=== PATIENT | male | born 1935 | race African-American/Black ===

== ENCOUNTER → 2018-02-11 08:19 | Outpatient (CLI) | payer MEDICARE, SELFPAY ==
[2018-02-11 10:16] LABS: Albumin Level 3.6 gm/dL (3.4-5.0); Anion Gap 16.8 mEq/L (5-15); Blood Urea Nitrogen 49 mg/dL (7-18); Calcium 8.7 mg/dL (8.5-10.1); Carbon Dioxide 22 mmol/L (21.0-32.0); Chloride 108 mmol/L (98-107); Creatinine,Serum 2.91 mg/dL (0.70-1.30); Estimated Glomerular Filt Rate 21 ml/min (>60); GFR (African American) 25 ML/MIN (>60); Glucose 115 mg/dL (74-106); Phosphorous 3.4 mg/dL (2.4-4.9); Potassium 4.8 mmoL/L (3.5-5.1); Sodium 142 mmol/L (136-145)
[2018-02-12 20:13] LABS: Vitamin D 25 Hydroxy 17.2 ng/mL (30.0-100.0)
== END ==
PROVIDERS: Visit Provider Internal Medicine Nephrology
DX: N18.4 Chronic kidney disease, stage 4 (severe) (principal)
CPT/HCPCS: 36415; 80069; 82652

== ENCOUNTER → 2018-02-14 13:28 | Outpatient (POV) | payer MEDICARE, SELFPAY | PROVIDERS: PCP Internal Medicine; Visit Provider Internal Medicine Nephrology | DX: Z00.00 Encounter for general adult medical examination without abnormal findings (principal) ==

== ENCOUNTER → 2018-05-24 13:02 | Outpatient (CLI) | payer MEDICARE, SELFPAY ==
[2018-05-24 14:43] LABS: Prostate Specific Ag Screen < 0.1 ng/mL (0.0-4.0)
== END ==
PROVIDERS: Visit Provider Urology
DX: Z12.5 Encounter for screening for malignant neoplasm of prostate (principal); C61 Malignant neoplasm of prostate
CPT/HCPCS: 36415; G0103

== ENCOUNTER → 2018-06-02 10:16 | Outpatient (CLI) | payer MEDICARE, SELFPAY ==
--- NOTE | 2018-06-02 10:22 | CA_ITS ---
PROCEDURE: 2-D M-mode and color Doppler study INDICATIONS FOR THE TEST: Chest pain COPD Heart Murmur Tobacco Smoking Palpitations Fatigue Syncope Edema HypertensionxDiabetes Mellitus Rheumatic Fever SOBxDOE Obesity Hyperlipidemia Family History HD Additional History CM, pacemaker PATIENT INFORMATION HEIGHT: 74'' WEIGHT: 205 GENDER: Male B/P: 118/67 2-D/M-MODE INTERPRETATION: 2-D MEASUREMENTS OBSERVED VALUES IN CMS Right Ventricular Dimension (RVDd) 2.8 Interventricular Septum (Thickness)(IVsd) 1.3 Left Ventricular Internal Dimensions(LVIDd) 5.7 Left Ventricular Posterior Wall (Thickness)(LVPWd) 1.3 Aortic Root 3.7 Aortic Cusp Separation 1.8 Left Atrial Dimensions (LAD) 4.7 2D 1. Left atrium is mildly enlarged, left ventricle is mildly dilated, there is mild concentric left ventricular hypertrophy, visually estimated ejection fraction approximately 20-25%, left ventricle is globally hypokinetic. 2. The right atrium and right ventricle are relatively normal size and function. There is catheter noted in the right atrium and right ventricle which is likely an ICD lead. 3. The aortic valve is minimally thickened and calcified, leaflet continue to display mobility. 4. The mitral and tricuspid valve leaflets are minimally thickened. 5. The pulmonic valve is poorly visualized. 6. No significant pericardial effusion noted. DOPPLER INTERROGATION: Doppler interrogation of the aortic, mitral and tricuspid valvular presence of moderate mitral and mild tricuspid regurgitation, tricuspid and jet velocity is insufficient for calculation of the right ventricular systolic pressure, diastolic parameters are inconclusive. CONCLUSION: 1. Mildly enlarged left atrium, mildly dilated left ventricle, mild concentric left ventricular hypertrophy, visually estimated ejection fraction of 20-25%, left ventricle is globally hypokinetic. Diastolic parameters are inconclusive. 2. Moderate mitral and mild tricuspid regurgitation 3. No significant pericardial effusion noted.
== END ==
PROVIDERS: PCP Family Medicine; Visit Provider Internal Medicine
DX: I50.22 Chronic systolic (congestive) heart failure (principal)
CPT/HCPCS: 93306

== ENCOUNTER → 2018-07-08 07:26 | Outpatient (CLI) | payer MEDICARE, SELFPAY ==
[2018-07-08 10:06] LABS: Anion Gap 16.5 mEq/L (5-15); Blood Urea Nitrogen 44 mg/dL (7-18); Calcium 8.4 mg/dL (8.5-10.1); Carbon Dioxide 23 mmol/L (21.0-32.0); Chloride 111 mmol/L (98-107); Creatinine,Serum 2.73 mg/dL (0.70-1.30); Estimated Glomerular Filt Rate 23 ml/min (>60); GFR (African American) 27 ML/MIN (>60); Glucose 114 mg/dL (74-106); Potassium 4.5 mmoL/L (3.5-5.1); Sodium 146 mmol/L (136-145)
== END ==
PROVIDERS: Urology; PCP Family Medicine; Visit Provider Internal Medicine
DX: I50.22 Chronic systolic (congestive) heart failure; I42.9 Cardiomyopathy, unspecified
CPT/HCPCS: 36415; 80048

== ENCOUNTER → 2018-08-17 09:00 | Outpatient (CLI) | payer MEDICARE, SELFPAY ==
[2018-08-17 09:21] LABS: Basophils % 0.8 % (0.1-2.0); Eosinophils # 0.1 K/mm3 (0.0-0.4); Eosinophils % 3.4 % (0.1-12.0); Hematocrit 28.4 % (42.0-52.0); Hemoglobin 9.3 g/dL (14.1-18.0); Lymphocytes # 0.3 K/mm3 (0.7-4.5); Lymphocytes % 9.8 K/mm3 (10-50); Mean Corpuscular HGB Conc 32.6 g/dL (31.8-35.4); Mean Corpuscular Volume 98.2 fl (80-94); Mean Platelet Volume 9.8 fl (7.4-10.4); Monocytes # 0.2 K/mm3 (0.1-1.0); Monocytes % 6.1 % (1.7-9.3); Neutrophils # 2.7 K/mm3 (1.8-7.8); Platelet Count 137 K/mm3 (142-424); Red Blood Count 2.89 M/mm3 (4.60-6.20); White Blood Count 3.4 K/mm3 (4.8-10.8)
[2018-08-17 09:32] LABS: Creatinine,Urine Random 124 mg/dL (20-320); Total Protein,Urine Random 29.1 mg/dL (0.0-11.9)
[2018-08-17 13:25] LABS: Albumin Level 3.3 gm/dL (3.4-5.0); Anion Gap 14.3 mEq/L (5-15); Blood Urea Nitrogen 43 mg/dL (7-18); Calcium 8.4 mg/dL (8.5-10.1); Carbon Dioxide 24 mmol/L (21.0-32.0); Chloride 110 mmol/L (98-107); Creatinine,Serum 2.79 mg/dL (0.70-1.30); Estimated Glomerular Filt Rate 22 ml/min (>60); GFR (African American) 27 ML/MIN (>60); Glucose 145 mg/dL (74-106); Phosphorous 3.5 mg/dL (2.4-4.9); Potassium 4.3 mmoL/L (3.5-5.1); Sodium 144 mmol/L (136-145); Uric Acid 8.4 mg/dL (2.6-7.2)
[2018-08-18 15:20] LABS: Parathyroid Hormone Intact 187 pg/mL (15-65)
[2018-08-18 15:21] LABS: Calcium, Ionized 4.8 mg/dL (4.5-5.6); Vitamin D 25 Hydroxy 22.7 ng/mL (30.0-100.0)
== END ==
PROVIDERS: Visit Provider Internal Medicine Nephrology
DX: N18.4 Chronic kidney disease, stage 4 (severe) (principal)
CPT/HCPCS: 36415; 80069; 82330; 82570; 82652; 83970; 84155; 84550; 85025

== ENCOUNTER → 2018-08-22 12:33 | Outpatient (POV) | payer MEDICARE, SELFPAY ==
[2018-08-22 15:07] LABS: Basophils % 0.6 % (0.1-2.0); Eosinophils # 0.1 K/mm3 (0.0-0.4); Hematocrit 31.1 % (42.0-52.0); Hemoglobin 9.4 g/dL (14.1-18.0); Lymphocytes # 0.5 K/mm3 (0.7-4.5); Mean Corpuscular HGB Conc 30.1 g/dL (31.8-35.4); Mean Corpuscular Volume 99.8 fl (80-94); Mean Platelet Volume 8.1 fl (7.4-10.4); Monocytes # 0.3 K/mm3 (0.1-1.0); Monocytes % 6.9 % (1.7-9.3); Neutrophils # 3.1 K/mm3 (1.8-7.8); Neutrophils % 77.5 % (37.0-80.0); Platelet Count 172 K/mm3 (142-424); Red Blood Count 3.12 M/mm3 (4.60-6.20); Red Cell Distribution Width 14.1 % (11.5-17.5)
== END ==
PROVIDERS: Visit Provider Internal Medicine Nephrology
DX: D63.8 Anemia in other chronic diseases classified elsewhere (principal)
CPT/HCPCS: 36415; 85025

== ENCOUNTER → 2018-11-02 09:24 | Outpatient (CLI) | payer MEDICARE, SELFPAY ==
[2018-11-02 10:34] LABS: Anion Gap 16.4 mEq/L (5-15); Blood Urea Nitrogen 38 mg/dL (7-18); Calcium 8.5 mg/dL (8.5-10.1); Carbon Dioxide 24 mmol/L (21.0-32.0); Chloride 106 mmol/L (98-107); Creatinine,Serum 2.45 mg/dL (0.70-1.30); Estimated Glomerular Filt Rate 25 ml/min (>60); GFR (African American) 31 ML/MIN (>60); Glucose 127 mg/dL (74-106); Potassium 4.4 mmoL/L (3.5-5.1); Sodium 142 mmol/L (136-145)
== END ==
PROVIDERS: Visit Provider Internal Medicine Cardiovascular Disease
DX: I42.0 Dilated cardiomyopathy (principal); I50.22 Chronic systolic (congestive) heart failure; Z95.810 Presence of automatic (implantable) cardiac defibrillator
CPT/HCPCS: 36415; 80048

== ENCOUNTER → 2018-11-21 09:38 | Outpatient (CLI) | payer MEDICARE, SELFPAY ==
[2018-11-21 11:27] LABS: Anion Gap 14.2 mEq/L (5-15); Blood Urea Nitrogen 43 mg/dL (7-18); Calcium 9.1 mg/dL (8.5-10.1); Carbon Dioxide 29 mmol/L (21.0-32.0); Chloride 103 mmol/L (98-107); Estimated Glomerular Filt Rate 22 ml/min (>60); GFR (African American) 26 ML/MIN (>60); Glucose 131 mg/dL (74-106); Potassium 4.2 mmoL/L (3.5-5.1); Sodium 142 mmol/L (136-145)
== END ==
PROVIDERS: Visit Provider Urology
DX: I42.9 Cardiomyopathy, unspecified (principal); I50.22 Chronic systolic (congestive) heart failure; Z95.810 Presence of automatic (implantable) cardiac defibrillator
CPT/HCPCS: 36415; 80048

== ENCOUNTER → 2018-11-29 11:10 | Outpatient (CLI) | payer MEDICARE, SELFPAY ==
[2018-11-29 12:29] LABS: Anion Gap 12.2 mEq/L (5-15); Blood Urea Nitrogen 47 mg/dL (7-18); Calcium 9.3 mg/dL (8.5-10.1); Carbon Dioxide 29 mmol/L (21.0-32.0); Chloride 106 mmol/L (98-107); Creatinine,Serum 2.68 mg/dL (0.70-1.30); Estimated Glomerular Filt Rate 23 ml/min (>60); GFR (African American) 28 ML/MIN (>60); Glucose 121 mg/dL (74-106); Potassium 4.2 mmoL/L (3.5-5.1); Sodium 143 mmol/L (136-145)
== END ==
PROVIDERS: Visit Provider Internal Medicine Cardiovascular Disease
DX: I10 Essential (primary) hypertension (principal); I50.22 Chronic systolic (congestive) heart failure
CPT/HCPCS: 36415; 80048

== ENCOUNTER → 2019-01-06 06:54 | Outpatient (CLI) | payer MEDICARE, SELFPAY ==
--- NOTE | 2019-01-06 07:02 | NM_ITS ---
CARDIOLITE SPECT MYOCARDIAL PERFUSION LEXISCAN, REST AND STRESS: History: Hypertension, congestive heart failure history of cardiomyopathy, Procedure: Patient received 0.4, intravenous Lexiscan, resting heart rate was 73 bpm resting blood pressure 130/83, with Lexiscan maximum heart rate achieved was 76 bpm which is less than 85% of the maximum heart rate and a blood pressure was 124/81. With Lexiscan patient denied any complained of chest pain or shortness of breath. Electrocardiogram: Resting echocardiogram showed sinus rhythm intraventricular conduction delay inferior lateral ST-T wave changes consider subendocardial ischemia, with Lexiscan there is less than 1.[address] segment depression noted from the baseline EKG. Occasional premature ventricular complexes were also present. The EKG portion of the Lexiscan Myoview is nondiagnostic. Cardiac stress and resting SPECT images: Cardiac stress and rest SPECT images were obtained using technetium 99 Myoview 32.0 mCi stress and 10.1 mCi at rest. Gated SPECT further analysis of segmental wall motion and calculation of the ejection fraction also done. Cardiac stress and rest SPECT images show markedly dilated left ventricle, with fixed defect in the inferior wall likely secondary to soft tissue attenuation, no reversible ischemia seen. Computer derived ejection fraction is 12% with left ventricular global hypokinesis. Right ventricle is moderately enlarged with mild reduced contractility. Conclusion: 1. The EKG portion of the Lexiscan Myoview is nondiagnostic. 2. No scintigraphic evidence of reversible ischemia seen, left ventricle is markedly dilated with stress and rest, computer derived ejection fraction is 12% with left ventricular global hypokinesis, right ventricle is moderately enlarged with mild reduced contractility. 3. Abnormal Lexiscan Myoview study.
--- NOTE | 2019-01-06 10:17 | HMH.ITSHM ---
Current Home Medications as stated by this patient Henrik Sanchez or kiosk sales representative. []CARVEDILOL FUROSEMIDE
== END ==
PROVIDERS: PCP Family Medicine; Visit Provider Internal Medicine Cardiovascular Disease
DX: I49.01 Ventricular fibrillation; I42.0 Dilated cardiomyopathy; I50.22 Chronic systolic (congestive) heart failure; R94.31 Abnormal electrocardiogram [ECG] [EKG]; Z45.02 Encounter for adjustment and management of automatic implantable cardiac defibrillator; Z95.810 Presence of automatic (implantable) cardiac defibrillator
CPT/HCPCS: 78452; 93017; A9502; J2785

== ENCOUNTER → 2019-04-21 09:30 | Outpatient (CLI) | payer MEDICARE, SELFPAY ==
[2019-04-21 09:51] LABS: Basophils % 0.6 % (0.1-2.0); Eosinophils # 0.2 K/mm3 (0.0-0.4); Eosinophils % 3.8 % (0.1-12.0); Hematocrit 39.6 % (42.0-52.0); Hemoglobin 12.2 g/dL (14.1-18.0); Lymphocytes # 0.7 K/mm3 (0.7-4.5); Lymphocytes % 17.3 % (10-50); Mean Corpuscular HGB Conc 30.8 g/dL (31.8-35.4); Mean Corpuscular Hemoglobin 30.5 pg (27.0-31.2); Mean Platelet Volume 9.4 fl (7.4-10.4); Monocytes # 0.2 K/mm3 (0.1-1.0); Monocytes % 4.5 % (1.7-9.3); Neutrophils % 73.8 % (37.0-80.0); Platelet Count 139 K/mm3 (142-424); Red Cell Distribution Width 13.9 % (11.5-17.5)
[2019-04-21 11:21] LABS: Albumin Level 3.4 gm/dL (3.4-5.0); Anion Gap 14.9 mEq/L (5-15); Calcium 8.7 mg/dL (8.5-10.1); Carbon Dioxide 25 mmol/L (21.0-32.0); Chloride 105 mmol/L (98-107); Estimated Glomerular Filt Rate 16 ml/min (>60); GFR (African American) 20 ML/MIN (>60); Glucose 142 mg/dL (74-106); Phosphorous 4.1 mg/dL (2.4-4.9); Potassium 3.9 mmoL/L (3.5-5.1); Sodium 141 mmol/L (136-145)
[2019-04-21 11:43] LABS: Blood Urea Nitrogen 80 mg/dL (7-18); Creatinine,Serum 3.58 mg/dL (0.70-1.30)
== END ==
PROVIDERS: Visit Provider Internal Medicine Nephrology
DX: N18.4 Chronic kidney disease, stage 4 (severe) (principal)
CPT/HCPCS: 36415; 80069; 85025

== ENCOUNTER → 2019-04-26 16:01 | Outpatient (POV) | payer MEDICARE, SELFPAY | PROVIDERS: Visit Provider Internal Medicine Nephrology | DX: Z00.00 Encounter for general adult medical examination without abnormal findings (principal) ==

== ENCOUNTER → 2019-05-23 13:35 | Outpatient (CLI) | payer MEDICARE, SELFPAY ==
[2019-05-23 19:10] LABS: Prostate Specific Ag, Diagnost 0 ng/mL (0.0-4.0)
== END ==
PROVIDERS: Visit Provider Urology
DX: C61 Malignant neoplasm of prostate (principal)
CPT/HCPCS: 36415; 84153

== ENCOUNTER → 2019-07-17 09:18 | Outpatient (CLI) | payer MEDICARE, SELFPAY ==
[2019-07-17 11:04] LABS: Albumin Level 3.5 gm/dL (3.4-5.0); Anion Gap 14.4 mEq/L (5-15); Blood Urea Nitrogen 50 mg/dL (7-18); Calcium 7.5 mg/dL (8.5-10.1); Carbon Dioxide 25 mmol/L (21.0-32.0); Chloride 105 mmol/L (98-107); Creatinine,Serum 1.09 mg/dL (0.70-1.30); Estimated Glomerular Filt Rate 65 ml/min (>60); GFR (African American) 78 ML/MIN (>60); Glucose 139 mg/dL (74-106); Phosphorous 3.4 mg/dL (2.4-4.9); Potassium 4.4 mmoL/L (3.5-5.1); Sodium 140 mmol/L (136-145)
== END ==
PROVIDERS: Visit Provider Internal Medicine Nephrology
DX: N18.4 Chronic kidney disease, stage 4 (severe) (principal)
CPT/HCPCS: 36415; 80069

== ENCOUNTER → 2019-07-17 12:50 | Outpatient (POV) | payer MEDICARE, SELFPAY | PROVIDERS: Visit Provider Internal Medicine Nephrology | DX: Z00.00 Encounter for general adult medical examination without abnormal findings (principal) ==

== ENCOUNTER → 2019-10-03 10:13 | Outpatient (CLI) | payer MEDICARE, SELFPAY ==
[2019-10-03 11:28] LABS: Albumin Level 3.5 gm/dL (3.4-5.0); Anion Gap 14.1 mEq/L (5-15); Blood Urea Nitrogen 57 mg/dL (7-18); Calcium 8.7 mg/dL (8.5-10.1); Carbon Dioxide 26 mmol/L (21.0-32.0); Chloride 106 mmol/L (98-107); Creatinine,Serum 2.65 mg/dL (0.70-1.30); Estimated Glomerular Filt Rate 23 ml/min (>60); GFR (African American) 28 ML/MIN (>60); Glucose 96 mg/dL (74-106); Phosphorous 3.6 mg/dL (2.4-4.9); Potassium 4.1 mmoL/L (3.5-5.1); Sodium 142 mmol/L (136-145)
== END ==
PROVIDERS: Visit Provider Internal Medicine Nephrology
DX: N18.4 Chronic kidney disease, stage 4 (severe) (principal)
CPT/HCPCS: 36415; 80069

== ENCOUNTER → 2019-10-04 12:57 | Outpatient (POV) | payer MEDICARE, SELFPAY | PROVIDERS: Visit Provider Internal Medicine Nephrology | DX: Z00.00 Encounter for general adult medical examination without abnormal findings (principal) ==

== ENCOUNTER → 2019-12-04 13:26 | Outpatient (CLI) | payer MEDICARE, SELFPAY ==
[2019-12-04 13:46] LABS: Basophils % 0.8 % (0.1-2.0); Eosinophils # 0.1 K/mm3 (0.0-0.4); Hematocrit 36.4 % (42.0-52.0); Hemoglobin 11.6 g/dL (14.1-18.0); Lymphocytes # 0.6 K/mm3 (0.7-4.5); Lymphocytes % 17.6 % (10-50); Mean Corpuscular HGB Conc 31.8 g/dL (31.8-35.4); Mean Corpuscular Hemoglobin 30.9 pg (27.0-31.2); Mean Corpuscular Volume 97.2 fl (80-94); Mean Platelet Volume 10.3 fl (7.4-10.4); Monocytes # 0.2 K/mm3 (0.1-1.0); Neutrophils # 2.4 K/mm3 (1.8-7.8); Neutrophils % 71.6 % (37.0-80.0); Platelet Count 104 K/mm3 (142-424); Red Blood Count 3.74 M/mm3 (4.60-6.20); White Blood Count 3.3 K/mm3 (4.8-10.8)
[2019-12-04 14:43] LABS: Anion Gap 12.2 mEq/L (5-15); Blood Urea Nitrogen 45 mg/dL (7-18); Calcium 9.1 mg/dL (8.5-10.1); Carbon Dioxide 29 mmol/L (21.0-32.0); Chloride 109 mmol/L (98-107); Creatinine,Serum 2.59 mg/dL (0.70-1.30); Estimated Glomerular Filt Rate 24 ml/min (>60); GFR (African American) 29 ML/MIN (>60); Glucose 116 mg/dL (74-106); Potassium 4.2 mmoL/L (3.5-5.1); Sodium 146 mmol/L (137-145)
== END ==
PROVIDERS: Visit Provider Nurse Practitioner Family
DX: I42.9 Cardiomyopathy, unspecified (principal); I48.0 Paroxysmal atrial fibrillation; I49.01 Ventricular fibrillation; I50.22 Chronic systolic (congestive) heart failure; R94.31 Abnormal electrocardiogram [ECG] [EKG]; Z95.810 Presence of automatic (implantable) cardiac defibrillator
CPT/HCPCS: 36415; 80048; 85025

== ENCOUNTER 2020-06-22 20:19 | Observation (INO) | payer MEDICARE, SELFPAY ==
[2020-06-22] VITALS (9 sets, daily range): BP systolic 108–122; BP diastolic 56–82; PULSE 60–76; RESP 16–18; TEMP 36.3–37; O2SAT 95–99; BMI 21.1; BMI 26.3
--- NOTE | 2020-06-22 20:34 | HMH.EDWEAK ---
ED Disposition Clinical Impression: Chronic systolic heart failure, Debility Disposition: Admitted As Inpatient Condition on Discharge: Good Referrals: Anyi Max [Primary Care Provider] - - Critical Care Critical Care Time: No Attestation: On , the high probability of a clinically significant, sudden or life threatening deterioration of the following system(s) required my full and direct attention, intervention and personal management. The time I documented below is in addition to time spent performing reported procedures but includes the following listed in this critical care notation. Medical Decision Making - Marcio Inquiry Pt receiving controlled substance: No Vital Signs: 06/22/20 20:20 06/22/20 21:14 06/22/20 21:30 Temperature 97.3 F L Temperature Source Oral Pulse Rate [Right Brachial] 60 76 74 Respiratory Rate 16 16 18 Blood Pressure [Right Arm] 115/76 114/78 122/82 Blood Pressure Mean [Right Arm] 89 90 95 Blood Pressure Source [Right Arm] Automatic Cuff Automatic Cuff Automatic Cuff Blood Pressure Position [Right Arm] Supine Supine Supine 02 Sat by Pulse Oximetry 99 95 99 Oxygen Delivery Method Room Air Room Air Room Air 06/22/20 22:00 06/22/20 22:30 06/22/20 23:00 Temperature Temperature Source Pulse Rate [Right Brachial] 72 74 74 Respiratory Rate 18 17 18 Blood Pressure [Right Arm] 108/74 L 122/56 L 112/80 Blood Pressure Mean [Right Arm] 85 78 90 Blood Pressure Source [Right Arm] Automatic Cuff Automatic Cuff Automatic Cuff Blood Pressure Position [Right Arm] Supine Supine Supine 02 Sat by Pulse Oximetry 99 98 99 Oxygen Delivery Method Room Air Room Air Room Air - Lab Data Lab Results 06/22/20 20:50: Sodium 143, Potassium 4.7, Chloride 110 H, Carbon Dioxide 24, Anion Gap 13.7, BUN 50 H, Creatinine 2.20 H, Estimated Creat Clear 32, Estimated GFR 29 L, Est GFR ( Amer) 35 L, Glucose 122 H, Calcium 8.8, Total Bilirubin 1.1, AST 25, ALT 13, Alkaline Phosphatase 162 H, Total Protein 7.1, Albumin 3.1 L, Globulin 4.0 H, Albumin/Globulin Ratio 0.8 L 06/22/20 20:50: NT-Pro-B Natriuret Pep 69919 H 06/22/20 20:50: SARS-CoV-2 IgG Ab (Rapid) Negative, SARS-CoV-2 IgM Ab (Rapid) Negative 06/22/20 21:30: WBC 3.5 L, RBC 3.55 L, Hgb 11.6 L, Hct 36.9 L, MCV 103.9 H, MCH 32.5 H, MCHC 31.3 L, RDW 15.1, Plt Count 169, MPV 8.3, Neut % (Auto) 79.5, Lymph % (Auto) 10.0, [place] % (Auto) 6.7, Eos % (Auto) 3.0, Baso % (Auto) 0.8, Neut # (Auto) 2.8, Lymph # (Auto) 0.3 L, [place] # (Auto) 0.2, Eos # (Auto) 0.1, Baso # (Auto) 0.0 06/22/20 21:30: Lactate 1.4 Result diagrams: 06/22/20 21:30 06/22/20 20:50 Orders (Tests/Meds): ED MEDICATIONS Generic Name Dose Route Start Last Admin Trade Name Freq PRN Reason Stop Dose Admin Carvedilol 6.25 mg 06/23/20 09:00 Coreg 6.25mg Tablet PO 07/23/20 08:59 BID THANIA Furosemide 40 mg 06/22/20 23:07 Lasix 40mg Tablet PO 07/22/20 23:06 DAILY PRN weight gain Discontinued Medications Generic Name Dose Route Start Last Admin Trade Name Freq PRN Reason Stop Dose Admin Furosemide 20 mg 06/22/20 22:41 06/22/20 22:43 Lasix 20mg/2ml Vial IV 06/22/20 22:42 20 mg ONCE ONE Administration ORDERS Category Date Time Status Urinalysis and Microscopic Stat Lab 06/22/20 20:42 Ordered EKG Request [ECG Request by /Jose] Stat Y 06/22/20 20:50 Ordered - ECG Data Tracing #1 Patient's EKG was reviewed and demonstrated paced rhythm at an appropriate rate with no evidence of ST segment changes meeting [place] criteria for STEMI and the patient is not having chest pain. Mildly prolonged QT. Rhythm is regular. ECG initial impression date: 06/22/20 ECG initial impression time: 21:03 Conduction abnormalities present: LBBB (Paced rhythm) Pacemaker function: normal pacer function - Reevaluation(s) Time: 22:10 (Patient resting comfortably.) Medical Decision Narrative: 85-year-old male who presents for weakness af
--- NOTE | 2020-06-22 20:42 | XR_ITS ---
PROCEDURE: XR CHEST PORTABLE CLINICAL HISTORY: weakness Heart disease COMPARISON: CR CXR1 CHEST-PORTABLE from 06/04/2016 FINDINGS: There is cardiomegaly without failure. There is a bipolar pacemaker present from left subclavian approach. Skin fold artifact is present on the right. There is increased density in both lower lobes consistent with bilateral lower lobe pneumonia and/or volume loss. There are degenerative changes in the left shoulder. IMPRESSION: Cardiomegaly with bilateral lower lobe airspace disease which may be due to pneumonia and/or atelectatic changes Dictated by: Clement Summers MD 06/22/2020 22:28 Clement Summers MD in [place] 06/22/2020 22:28
--- NOTE | 2020-06-22 20:50 | ECG_ITS ---
APPROVED REPORT Exam: Resting ECG HR:70 bpm ECG Measurements Heart Rate 70 AXES OR 216 P 14 QRSd 146 QRS -40 QT 462 T 132 QTc 498 <Conclusion> Sinus rhythm with 1st degree AV block Left axis deviation Left bundle branch block Abnormal ECG Electronically signed by : Leo Thornton, 06/25/2020 12:37:26
[2020-06-22 21:14] LABS: Chloride 110 mmol/L (98-107); Potassium 4.7 mmoL/L (3.5-5.1); Sodium 143 mmol/L (136-145)
--- NOTE | 2020-06-22 21:15 | PC.NURSE ---
daughter at bedside. Reports patient had decline rehab when discharge from [facility], but he was going to have to go because he was not any better.
[2020-06-22 21:16] LABS: Alanine Aminotransferase 13 U/L (12-78); Aspartate Amino Transferase 25 U/L (17-59); Blood Urea Nitrogen 50 mg/dl (9-20); Creatinine Clearance Estimated 32 mL/min (50-200); Estimated Glomerular Filt Rate 29 ml/min (>60); GFR (African American) 35 ML/MIN (>60)
[2020-06-22 21:17] LABS: Albumin Level 3.1 g/dl (3.5-5.0); Albumin/Globulin Ratio 0.8 (1.1-1.8); Alkaline Phosphatase 162 U/L (38-126); Anion Gap 13.7 mEq/L (5-15); Bilirubin,Total 1.1 mg/dl (0.2-1.3); Calcium 8.8 mg/dl (8.4-10.2); Carbon Dioxide 24 mmol/L (22.0-30.0); Glucose 122 mg/dl (74-100); Total Protein,Serum 7.1 g/dl (6.3-8.2)
[2020-06-22 21:35] LABS: Basophils % 0.8 % (0.1-2.0); Eosinophils # 0.1 K/mm3 (0.0-0.4); Hematocrit 36.9 % (42.0-52.0); Hemoglobin 11.6 g/dL (14.1-18.0); Lymphocytes # 0.3 K/mm3 (0.7-4.5); Mean Corpuscular HGB Conc 31.3 g/dL (31.8-35.4); Mean Corpuscular Hemoglobin 32.5 pg (27.0-31.2); Mean Corpuscular Volume 103.9 fl (80-94); Mean Platelet Volume 8.3 fl (7.4-10.4); Monocytes # 0.2 K/mm3 (0.1-1.0); Monocytes % 6.7 % (1.7-9.3); Neutrophils # 2.8 K/mm3 (1.8-7.8); Neutrophils % 79.5 % (37.0-80.0); Platelet Count 169 K/mm3 (142-424); Red Blood Count 3.55 M/mm3 (4.60-6.20); Red Cell Distribution Width 15.1 % (11.5-17.5); White Blood Count 3.5 K/mm3 (4.8-10.8)
[2020-06-22 21:43] LABS: Lactic Acid 1.4 mmol/L (0.7-2.1)
[2020-06-22 21:44] LABS: NT Pro Brain Natriuretic Pep. 64300 pg/mL (0-450)
--- NOTE | 2020-06-22 22:35 | PC.NURSE ---
Patient incont of bowel. pericare given and reposition.
--- NOTE | 2020-06-22 22:37 | PC.NURSE ---
call out for dr. madison at this time. pt is a on service patient
--- NOTE | 2020-06-22 22:41 | PC.NURSE ---
spoke to dr. farnsworth and gricelda accepted admission
[2020-06-22 23:04] LABS: Coronavirus 19 IgG Antibody Negative (Negative); Coronavirus 19 IgM Antibody Negative (Negative)
--- NOTE | 2020-06-22 23:18 | PC.NURSE ---
report called to Liliane Aquino RN
--- NOTE | 2020-06-22 23:21 | PC.NURSE ---
No urinary output at this time.
--- NOTE | 2020-06-22 23:41 | PC.NURSE ---
patient up to floor via stretcher.
[2020-06-23] VITALS (10 sets, daily range): BP systolic 112–120; BP diastolic 72–84; PULSE 68–75; RESP 16–20; TEMP 35.5–36.8; O2SAT 97–99; BMI 26.3
--- NOTE | 2020-06-23 05:23 | PC.NURSE ---
shift summary, pt has rested on and off t/o shift, was incontinent of bowel and bladder upon arrival to the floor, pt had another episode of incontinence of urine in the floor, pt has had no complaints this shift
[2020-06-23 06:56] LABS: Basophils % 0.5 % (0.1-2.0); Eosinophils % 0.8 % (0.1-12.0); Hematocrit 36.4 % (42.0-52.0); Hemoglobin 11.9 g/dL (14.1-18.0); Lymphocytes # 0.4 K/mm3 (0.7-4.5); Lymphocytes % 11.3 % (10-50); Mean Corpuscular HGB Conc 32.7 g/dL (31.8-35.4); Mean Corpuscular Hemoglobin 32.9 pg (27.0-31.2); Mean Corpuscular Volume 100.6 fl (80-94); Mean Platelet Volume 9.1 fl (7.4-10.4); Monocytes # 0.2 K/mm3 (0.1-1.0); Monocytes % 6.9 % (1.7-9.3); Neutrophils # 2.8 K/mm3 (1.8-7.8); Neutrophils % 80.5 % (37.0-80.0); Platelet Count 165 K/mm3 (142-424); Red Blood Count 3.62 M/mm3 (4.60-6.20); Red Cell Distribution Width 15.1 % (11.5-17.5); White Blood Count 3.4 K/mm3 (4.8-10.8)
[2020-06-23 07:15] LABS: Alanine Aminotransferase 9 U/L (12-78); Albumin/Globulin Ratio 0.8 (1.1-1.8); Alkaline Phosphatase 169 U/L (38-126); Anion Gap 9.3 mEq/L (5-15); Aspartate Amino Transferase 21 U/L (17-59); Blood Urea Nitrogen 49 mg/dl (9-20); Calcium 8.9 mg/dl (8.4-10.2); Carbon Dioxide 28 mmol/L (22.0-30.0); Chloride 110 mmol/L (98-107); Creatinine Clearance Estimated 31 mL/min (50-200); Estimated Glomerular Filt Rate 26 ml/min (>60); GFR (African American) 31 ML/MIN (>60); Globulin 3.9 g/dL (1.3-3.2); Glucose 112 mg/dl (74-100); Potassium 4.3 mmoL/L (3.5-5.1); Sodium 143 mmol/L (136-145); Total Protein,Serum 6.9 g/dl (6.3-8.2)
--- NOTE | 2020-06-23 09:33 | HMH.HP ---
*Admission Date: 06/23/20 *Chief complaint: Generalized weakness *History of present illness: 85-year-old male with history of chronic kidney disease, dilated cardiomyopathy and paroxysmal atrial fibrillation known to our cardiology service presented to the emergency department with generalized weakness and inability to care for himself at home. Patient had been hospitalized at [facility] earlier in the week (June 16 to June 18, after he was found having had multiple falls at home with inability to ambulate under his own power. Patient had at least a 48-hour hospital stay and then discharge planning occurred and patient was going to go to a rehab facility. However at the last minute the patient changed his mind and chose to go home with home health. Apparently the patient was evaluated by home health and felt to be inappropriate for services they could provide and was instructed to come to the emergency department by the home health group. Patient presented here to our facility. He has a previously mentioned medical history. On ER work-up patient was found to have significant elevation of his BNP. Patient was given Lasix 20 mg IV and admitted. Patient himself is unable to provide any history at all regarding his recent stay at [facility], how he arrived at this facility, who told him to come to this facility. The above history is obtained from his daughter Abida. [facility] History I have reviewed the patient's past medical history: Yes Medical History: Reports:: Atrial Fibrillation, Cardiomyopathy, Hypertension, Internal Pacemaker, Renal Disease Denies:: Cancer, Diabetes Mellitus Type 1, Diabetes Mellitus Type 2, MRSA *Have you ever received a pneumonia vaccine?: No *Have you received a flu vaccine this season?: No Other Surgeries: Yes: No Previous Surgery, Colonoscopy, Pacemaker Amputation: No Fractures: No - *Social History Last grade of school completed: High school graduate Smoking Status: Never smoker Alcohol Intake: never Alcohol Intake Frequency:: other Substance Use Type: denies use *Occupational Status:: retired *Travel in the last 8 weeks: None Family Hx:: No significant family history Review of Systems - Constitutional Reports lack of energy, Reports weakness, Reports weight gain (25 pound weight gain this year), Denies body ache(s), Denies chills - *Cardiovascular Denies chest pain - *Respiratory Denies change in phlegm color, Denies chest congestion, Denies cough - *Gastrointestinal Denies abdominal pain - *Genitourinary Reports urinary incontinence - *Neurologic Reports abnormal walking - Endocrine Denies cold intolerance, Denies excessive sweating, Denies flushing Meds Home Medications Medication Instructions Recorded Confirmed Type furosemide 40 mg tablet 40 mg PO DAILY PRN #90 tab 07/10/19 06/23/20 Rx Isosorbide Mononitrate [Imdur 30mg 30 mg PO DAILY 06/22/20 06/23/20 History ER tablet] carvediloL [Carvedilol 6.25mg Tab] 6.25 mg PO BID 06/22/20 06/23/20 History Atorvastatin Calcium [Lipitor 40mg 40 mg PO HS 06/23/20 06/23/20 History Tab] Folic Acid [Folic Acid 1mg tablet] 1 mg PO DAILY 06/23/20 06/23/20 History Pantoprazole Sodium [Protonix 40mg 40 mg PO DAILY 06/23/20 06/23/20 History tablet] Allergies Allergy/AdvReac Type Severity Reaction Status Date / Time No Known Allergies Allergy Verified 06/23/20 00:28 Exam Vital signs and Labs for Last 24 Hours: Temp Pulse Resp BP Pulse Ox 98.0 F 71 20 117/80 98 06/23/20 08:00 06/23/20 08:00 06/23/20 08:00 06/23/20 08:00 06/23/20 08:00 Laboratory Results - last 24 hr 06/22/20 20:50: Sodium 143, Potassium 4.7, Chloride 110 H, Carbon Dioxide 24, Anion Gap 13.7, BUN 50 H, Creatinine 2.20 H, Estimated Creat Clear 32, Estimated GFR 29 L, Est GFR ( Amer) 35 L, Glucose 122 H, Calcium 8.8, Total Bilirubin 1.1, AST 25, ALT 13, Alkaline Phosphatase 162 H, Total Protein 7.1, Albumin
--- NOTE | 2020-06-23 10:33 | HMH.PHAINT ---
HOME MEDICATIONS RECONCILED FROM RX BOTTLES
--- NOTE | 2020-06-23 10:35 | HMH.PHAVTE ---
[facility] Pharmacy VTE Monitoring - Patient Demographics Admission date: 06/22/20 Report Date: 06/23/20 Time: 10:35 Allergies/Adverse Reactions: Patient Allergies No Known Allergies Allergy (Verified 06/23/20 00:28) Height: 1.88 m Weight: 93.071 kg Patient Problems: Current Active Problems (Last Updated 09/04/19 @ 14:11 by Gavi Yeager RN) Debility (Acute) Weight gain with edema (Acute) Kidney disease, chronic, stage IV (GFR 15-29 ml/min) (Acute) Fall at home (Acute) DNR (do not resuscitate) (Acute) Acute on chronic diastolic congestive heart failure, NYHA class 4 (Acute) Chronic systolic heart failure (Chronic) - VTE Risk Labs: VTE Related Lab Results Hgb 11.9 g/dL (14.1-18.0) L 06/23/20 06:39 Hct 36.4 % (42.0-52.0) L 06/23/20 06:39 Plt Count 165 K/mm3 (142-424) 06/23/20 06:39 BUN 49 mg/dl (9-20) H 06/23/20 06:39 Creatinine 2.40 mg/dl (0.66-1.25) H 06/23/20 06:39 Estimated Creat Clear 31 mL/min (50-200) 06/23/20 06:39 VTE Score: 5 VTE Risk Level: Low Risk - Prophylaxis VTE Prophylaxis Ordered?: Yes Types of VTE Prophylaxis: TEDS Knee High Location of Applied Device: Bilateral Lower Extremeties
--- NOTE | 2020-06-23 15:34 | PC.NURSE ---
Addendum entered by Karla Jarquin RN 06/23/20 17:53: PT HAS HAD 4 LARGE SOFT BM PER FREIGHT TRUCKER. Original Note: A&OX NAME AND BIRTHDAY. PT HAS TOLERATED ROOM AIR WELL THROUGHOUT SHIFT. RESPIRATIONS REGULAR AND UNLABORED. LUNG SOUNDS BILATERALLY CLEAR. ACTIVE BOWEL SOUNDS HEARD IN ALL 4 QUADRANTS. LARGE, ROUND, AND FIRM ABDOMEN NOTED. NO BM THUS FAR. CONDOM CATH IN PLACE. PT HAS PULLED OFF SEVERAL TIMES, BUT IT HAS BEEN REAPPLIED. +2 PULSES NOTED THROUGHOUT. NO EDEMA NOTED. PT HAS BEEN ASSISTED TO TURN Q 2 HOURS TO HELP PREVENT SKIN BREAKDOWN. BED ALARM IN PLACE TO PROMOTE SAFETY. NO REPORTS OF PAIN OR SOB THUS FAR. PT IS CURRENTLY LYING IN BED RESTING. CALL LIGHT WITHIN REACH. BED IN LOWEST POSITION. VSS. WILL CONTINUE TO MONITOR.
--- NOTE | 2020-06-23 17:52 | HMH.PTEV ---
Physical Therapy Evaluation Rehab PT IP Evaluation Start: 06/23/20 09:55 Freq: ONCE Status: Active Protocol: Document 06/23/20 17:49 PHORNE (Rec: 06/23/20 17:51 PHORNE [id number]) Subjective/History History History 85 yoaam adm to [facility] with CHF exac and generalized weakness. Pt reports he lives alone and has 1 flight of stairs in his home. Subjective Subjective No current c/o. Rehab PT IP Eval Objective Appearance Patient Behavior Appropriate,Distractible Patient Orientation Person,Place Difficulty following instructions none Speech Pattern Clear Ambulation Patient Able to Ambulate No Balance Ability to Arise Able, uses arms to help Sitting Balance Leans or slides in chair Standing Balance Unsteady Dynamic Sitting Balance Ability Fair Dynamic Standing Balance Ability Poor Transfers Bed Transfer Ability Moderate x 1 (50% assist) Chair Transfer Ability Maximum x 1 (75% assist) Sit to Stand Bed Transfer Ability Maximum x 1 (75% assist) Sit to Stand Chair Transfer Ability Maximum x 1 (75% assist) ROM All Extremities PT ROM Status WFL MMT All Extremities PT MMT WFL Abnormal MMT Grade grossly 4/5 Rehab PT IP prob,goals,plan Problems Date of Evaluation: 06/23/20 PT IP Problems Bed Mobility,Transfers,Gait Rehab Potential Rehab Potential Fair Plan PT Intervention Plan Bed Mobility,Transfers,Gait, Self care,Therapeutic Exercise PT Plan Frequency BID Duration LOS Discharge Goals Bed Transfer Ability Minimal x 1 (25% assist) Sit to Stand Chair Transfer Ability Moderate x 1 (50% assist) Ambulation Assistive Device Rolling Walker Ambulation Distance (feet) 5 Discharge Plan PT Discharge Plan Pt is most appropriate for rehab placement at this time and once medically stable. G -code Required No Eval Complexity Eval Charge Codes 84774 - Moderate Complexity PHYSICIAN CERTIFICATION: I certify the specified therapy services for Henrik Sanchez are required, authorized, and reviewed every 30 days.
[2020-06-24 02:15] VITALS: TEMP 36.4
[2020-06-24 04:00] VITALS: BP 110/69; PULSE 74; RESP 17; TEMP 36.3; O2SAT 97
--- NOTE | 2020-06-24 04:57 | PC.NURSE ---
shift summary, at beginning of shift oral temperature would not read, rectal temperature taken and found to be 95.9, temperature increased in room, warm blankets placed on pt, pt temperature rechecked 20 minutes later and was 96.2, temperature was rechecked at intervals and at 2358 was 97.1, pt temperature at 0400 vital check was 97.4, pt had no complaints during this time, pt rested intermittently t/o shift, pt did remove condom catheter 2 times during shift and had episodes of incontinence subsequently, pt has been pleasantly confused and cooperative t/o shift, no complaints voiced t/o shift
[2020-06-24 05:00] VITALS: BMI 25.7
--- NOTE | 2020-06-24 07:13 | HMH.ACPN2 ---
Internal Medicine - PN: Subj *Date: 06/24/20 *Time: 07:13 Interval history: Patient has no complaints this morning. He denies chest pain and shortness of breath. Records were obtained from his hospitalization at [facility] which is very similar to his presentation here although it appears like he had more respiratory symptoms during his previous hospitalization. Patient frequently pulled off the condom catheter being used to track his urine output. Exam Vital signs and Labs for Last 24 Hours: Temp Pulse Resp BP Pulse Ox 97.4 F L 74 17 110/69 97 06/24/20 04:00 06/24/20 04:00 06/24/20 04:00 06/24/20 04:00 06/24/20 04:00 Laboratory Results - last 24 hr 06/23/20 06:39: Sodium 143, Potassium 4.3, Chloride 110 H, Carbon Dioxide 28, Anion Gap 9.3, BUN 49 H, Creatinine 2.40 H, Estimated Creat Clear 31, Estimated GFR 26 L, Est GFR ( Amer) 31 L, Glucose 112 H, Calcium 8.9, Total Bilirubin 1.0, AST 21, ALT 9 L D, Alkaline Phosphatase 169 H, Total Protein 6.9, Albumin 3.0 L, Globulin 3.9 H, Albumin/Globulin Ratio 0.8 L I & O for Last 24 hours: Intake & Output 06/21/20 06/22/20 06/23/20 06/24/20 11:59 11:59 11:59 11:59 Intake Total 240 / 240 600 / 600 Output Total 500 / 500 Balance 240 / 240 100 / 100 Weight 205 lb 2.983 oz 200 lb 2 oz Narrative: Patient is sitting up in bed eating breakfast and appears comfortable. Lungs are clear to auscultation. Heart has a regular rate and rhythm. Patient's AICD is palpable in his left upper chest. Lower extremities have 2-3+ edema extending from the ankles to the thighs. Assessment and Plan (1) Acute on chronic diastolic congestive heart failure, NYHA class 4 Current visit: Yes Status: Acute Category: Medical Code(s): I50.33 - Acute on chronic diastolic (congestive) heart failure (2) Chronic systolic heart failure Current visit: Yes Status: Chronic Category: Medical Code(s): I50.22 - Chronic systolic (congestive) heart failure (3) Kidney disease, chronic, stage IV (GFR 15-29 ml/min) Current visit: Yes Status: Acute Category: Medical Code(s): N18.4 - Chronic kidney disease, stage 4 (severe) (4) Weight gain with edema Current visit: Yes Status: Acute Category: Medical Code(s): R63.5 - Abnormal weight gain; R60.9 - Edema, unspecified (5) PAF (paroxysmal atrial fibrillation) Current visit: No Status: Chronic Category: Medical Code(s): I48.0 - Paroxysmal atrial fibrillation (6) Automatic implantable cardioverter-defibrillator in situ Current visit: No Status: Chronic Category: Medical Code(s): Z95.810 - Presence of automatic (implantable) cardiac defibrillator (7) Essential hypertension Current visit: No Status: Chronic Category: Medical Code(s): I10 - Essential (primary) hypertension (8) Cardiomyopathy Current visit: No Status: Chronic Qualifiers: Cardiomyopathy type: dilated Qualified Code(s): I42.0 - Dilated cardiomyopathy Category: Medical Code(s): I42.9 - Cardiomyopathy, unspecified (9) Fall at home Current visit: Yes Status: Acute Category: Medical Code(s): W19.XXXA - Unspecified fall, initial encounter; Y92.009 - Unspecified place in unspecified non-institutional (private) residence as the place of occurrence of the external cause (10) DNR (do not resuscitate) Current visit: Yes Status: Acute Category: Medical Code(s): Z66 - Do not resuscitate (11) Debility Current visit: Yes Status: Acute Category: Medical Code(s): R53.81 - Other malaise - Assessment and plan all Dx Assessment and Plan for all problems:: No change in plan of care. Await labs this morning for monitoring of patient's chronic kidney disease. Physical therapy evaluation was performed yesterday and SNF for rehabilitation was recommended by them.
[2020-06-24 07:20] LABS: Basophils % 0.6 % (0.1-2.0); Eosinophils # 0.1 K/mm3 (0.0-0.4); Eosinophils % 2.3 % (0.1-12.0); Hematocrit 36.2 % (42.0-52.0); Hemoglobin 11.8 g/dL (14.1-18.0); Lymphocytes # 0.3 K/mm3 (0.7-4.5); Lymphocytes % 11.5 % (10-50); Mean Corpuscular HGB Conc 32.5 g/dL (31.8-35.4); Mean Corpuscular Hemoglobin 32.7 pg (27.0-31.2); Mean Corpuscular Volume 100.4 fl (80-94); Mean Platelet Volume 8.6 fl (7.4-10.4); Monocytes # 0.2 K/mm3 (0.1-1.0); Monocytes % 7.4 % (1.7-9.3); Neutrophils # 2.3 K/mm3 (1.8-7.8); Neutrophils % 78.2 % (37.0-80.0); Platelet Count 167 K/mm3 (142-424); Red Cell Distribution Width 15.2 % (11.5-17.5); White Blood Count 2.9 K/mm3 (4.8-10.8)
[2020-06-24 07:26] LABS: Chloride 109 mmol/L (98-107); Potassium 4.8 mmoL/L (3.5-5.1); Sodium 141 mmol/L (136-145)
[2020-06-24 07:29] LABS: Blood Urea Nitrogen 54 mg/dl (9-20); Creatinine Clearance Estimated 31 mL/min (50-200); Estimated Glomerular Filt Rate 27 ml/min (>60); GFR (African American) 33 ML/MIN (>60)
[2020-06-24 07:30] LABS: Anion Gap 10.8 mEq/L (5-15); Calcium 8.7 mg/dl (8.4-10.2); Carbon Dioxide 26 mmol/L (22.0-30.0); Glucose 91 mg/dl (74-100)
[2020-06-24 08:00] VITALS: BP 121/79; PULSE 70; RESP 19; TEMP 36.6; O2SAT 97
[2020-06-24 16:00] VITALS: BP 114/77; PULSE 69; RESP 18; TEMP 36.9; O2SAT 95
--- NOTE | 2020-06-24 17:29 | PC.NURSE ---
Pt has been pleasant and somewhat cooperative this shift, although he is upset about his 1200 ML fluid restriction. Alert to person. No complaints of pain. Pt is incontinent of bowel and bladder and has had 2 large, brown, soft BM's this shift. Lungs CTA. 1+ pitting edema noted to BLE. 20 G peripheral IV in the LT forearm is patent and SL. VSS. Call light within reach. Will continue to monitor.
--- NOTE | 2020-06-24 19:07 | PC.NURSE ---
report given to mitali
[2020-06-24 20:00] VITALS: BP 109/80; PULSE 71; RESP 28; TEMP 36.6; O2SAT 92
[2020-06-24 21:15] VITALS: O2SAT 95
--- NOTE | 2020-06-25 03:24 | PC.NURSE ---
Pt is alert and oriented to person and place. Pt rested with eyes closed intermittently t/o shift. PERRLA. Bilateral hand metal off bearer noted equal and strong. Cap refill < 3 seconds. No acute changes noted this shift. Denies pain when asked. +2 pitting edema noted to BLE. Refused teds. 1,200 fluid restriction. Bilateral lung sounds noted clear t/o upon auscultation. Tolerated RA well with no c/o soa. Incontinent of bowel and bladder. Brief in place. Pt also states he preferred to use the urinal at bedside. Adequate urine output noted per urinal and brief this shift. Urine noted clear and bright yellow in color with strong odor. Smear BM noted. Skin noted c/d/i. VSS. Call light within reach. Remains safe with bed alarm functioning. Will continue to monitor.
[2020-06-25 04:00] VITALS: BP 144/88; PULSE 71; RESP 24; TEMP 36.5; O2SAT 98
[2020-06-25 05:00] VITALS: BMI 25.8
[2020-06-25 06:52] LABS: Basophils % 0.4 % (0.1-2.0); Eosinophils # 0.1 K/mm3 (0.0-0.4); Eosinophils % 2.1 % (0.1-12.0); Hematocrit 36.8 % (42.0-52.0); Hemoglobin 11.8 g/dL (14.1-18.0); Lymphocytes # 0.4 K/mm3 (0.7-4.5); Lymphocytes % 11.2 % (10-50); Mean Corpuscular Hemoglobin 32.4 pg (27.0-31.2); Mean Corpuscular Volume 101.3 fl (80-94); Mean Platelet Volume 8.2 fl (7.4-10.4); Monocytes # 0.3 K/mm3 (0.1-1.0); Monocytes % 7.2 % (1.7-9.3); Neutrophils # 2.9 K/mm3 (1.8-7.8); Neutrophils % 79.2 % (37.0-80.0); Platelet Count 152 K/mm3 (142-424); Red Blood Count 3.63 M/mm3 (4.60-6.20); Red Cell Distribution Width 14.8 % (11.5-17.5); White Blood Count 3.6 K/mm3 (4.8-10.8)
[2020-06-25 07:01] LABS: Chloride 108 mmol/L (98-107); Potassium 4.2 mmoL/L (3.5-5.1); Sodium 142 mmol/L (136-145)
[2020-06-25 07:04] LABS: Anion Gap 11.2 mEq/L (5-15); Blood Urea Nitrogen 52 mg/dl (9-20); Calcium 8.7 mg/dl (8.4-10.2); Carbon Dioxide 27 mmol/L (22.0-30.0); Creatinine Clearance Estimated 31 mL/min (50-200); Estimated Glomerular Filt Rate 27 ml/min (>60); GFR (African American) 33 ML/MIN (>60); Glucose 109 mg/dl (74-100)
--- NOTE | 2020-06-25 07:04 | HMH.ACPN2 ---
Internal Medicine - PN: Subj *Date: 06/25/20 *Time: 07:04 Interval history: Patient has no complaints this morning. He denies chest pain or shortness of breath. Patient did well yesterday. He did ambulate to the bedside commode. Exam Vital signs and Labs for Last 24 Hours: Temp Pulse Resp BP Pulse Ox 97.7 F 71 24 144/88 H 98 06/25/20 04:00 06/25/20 04:00 06/25/20 04:00 06/25/20 04:00 06/25/20 04:00 Laboratory Results - last 24 hr 06/24/20 06:58: WBC 2.9 L, RBC 3.60 L, Hgb 11.8 L, Hct 36.2 L, MCV 100.4 H, MCH 32.7 H, MCHC 32.5, RDW 15.2, Plt Count 167, MPV 8.6, Neut % (Auto) 78.2, Lymph % (Auto) 11.5, [place] % (Auto) 7.4, Eos % (Auto) 2.3, Baso % (Auto) 0.6, Neut # (Auto) 2.3, Lymph # (Auto) 0.3 L, [place] # (Auto) 0.2, Eos # (Auto) 0.1, Baso # (Auto) 0.0 06/24/20 06:58: Sodium 141, Potassium 4.8, Chloride 109 H, Carbon Dioxide 26, Anion Gap 10.8, BUN 54 H, Creatinine 2.30 H, Estimated Creat Clear 31, Estimated GFR 27 L, Est GFR ( Amer) 33 L, Glucose 91, Calcium 8.7 06/25/20 06:30: WBC 3.6 L, RBC 3.63 L, Hgb 11.8 L, Hct 36.8 L, MCV 101.3 H, MCH 32.4 H, MCHC 32.0, RDW 14.8, Plt Count 152, MPV 8.2, Neut % (Auto) 79.2, Lymph % (Auto) 11.2, [place] % (Auto) 7.2, Eos % (Auto) 2.1, Baso % (Auto) 0.4, Neut # (Auto) 2.9, Lymph # (Auto) 0.4 L, [place] # (Auto) 0.3, Eos # (Auto) 0.1, Baso # (Auto) 0.0 I & O for Last 24 hours: Intake & Output 06/22/20 06/23/20 06/24/20 06/25/20 11:59 11:59 11:59 11:59 Intake Total 240 / 240 960 / 960 10 Output Total 500 / 500 300 / 300 Balance 240 / 240 460 / 460 -290 / -290 Weight 205 lb 2.983 oz 200 lb 2 oz 201 lb 8 oz Narrative: Patient is in no distress. Lungs are clear. Heart has a regular rate and rhythm. Edema of both lower extremities persists at 2+ Assessment and Plan (1) Acute on chronic diastolic congestive heart failure, NYHA class 4 Current visit: Yes Status: Acute Category: Medical Code(s): I50.33 - Acute on chronic diastolic (congestive) heart failure (2) Chronic systolic heart failure Current visit: Yes Status: Chronic Category: Medical Code(s): I50.22 - Chronic systolic (congestive) heart failure (3) Kidney disease, chronic, stage IV (GFR 15-29 ml/min) Current visit: Yes Status: Acute Category: Medical Code(s): N18.4 - Chronic kidney disease, stage 4 (severe) (4) Weight gain with edema Current visit: Yes Status: Acute Category: Medical Code(s): R63.5 - Abnormal weight gain; R60.9 - Edema, unspecified (5) PAF (paroxysmal atrial fibrillation) Current visit: No Status: Chronic Category: Medical Code(s): I48.0 - Paroxysmal atrial fibrillation (6) Automatic implantable cardioverter-defibrillator in situ Current visit: No Status: Chronic Category: Medical Code(s): Z95.810 - Presence of automatic (implantable) cardiac defibrillator (7) Essential hypertension Current visit: No Status: Chronic Category: Medical Code(s): I10 - Essential (primary) hypertension (8) Cardiomyopathy Current visit: No Status: Chronic Qualifiers: Cardiomyopathy type: dilated Qualified Code(s): I42.0 - Dilated cardiomyopathy Category: Medical Code(s): I42.9 - Cardiomyopathy, unspecified (9) Fall at home Current visit: Yes Status: Acute Category: Medical Code(s): W19.XXXA - Unspecified fall, initial encounter; Y92.009 - Unspecified place in unspecified non-institutional (private) residence as the place of occurrence of the external cause (10) DNR (do not resuscitate) Current visit: Yes Status: Acute Category: Medical Code(s): Z66 - Do not resuscitate (11) Debility Current visit: Yes Status: Acute Category: Medical Code(s): R53.81 - Other malaise - Assessment and plan all Dx Assessment and Plan for all problems:: Care management will investigate SNF options today for the patient.
--- NOTE | 2020-06-25 07:52 | SW/DCPLANNER ---
Addendum entered by Rita Brown 06/25/20 16:44: NEGATIVE COVID results faxed to [facility] at [place]. Patient will discharge today. Addendum entered by Michaela Gabriel 06/25/20 14:11: PATIENT HAS BEEN ACCEPTED TO [facility] PENDING COVID IS NEGATIVE....IF THE COVID COMES BACK BEFORE 5:00 HE WILL DISCHARGE TODAY IF NOT IT WILL BE IN THE AM...... Original Note: SENT REFERRAL TO [facility] PER REQUEST TO SEE IF THEY HAVE ANY SKILLED REHAB BEDS AVAILABLE.....IF ACCEPTED WE WILL NEED TO GET A RAPID SWAB TO SEND TO ENSURE HE DOESN'T HAVE COVID.. PER DR WAGNER PATIENT IS READY FOR A DISCHARGE...
[2020-06-25 08:00] VITALS: BP 114/77; PULSE 73; RESP 18; TEMP 36.7; O2SAT 94
--- NOTE | 2020-06-25 12:44 | HMH.DCSUM ---
General - General Admission date:: 06/22/20 Discharge date: 06/25/20 HPI HPI: 85-year-old male with history of chronic kidney disease, dilated cardiomyopathy and paroxysmal atrial fibrillation known to our cardiology service presented to the emergency department with generalized weakness and inability to care for himself at home. Patient had been hospitalized at [facility] earlier in the week (June 16 to June 18, after he was found having had multiple falls at home with inability to ambulate under his own power. Patient had at least a 48-hour hospital stay and then discharge planning occurred and patient was going to go to a rehab facility. However at the last minute the patient changed his mind and chose to go home with home health. Apparently the patient was evaluated by home health and felt to be inappropriate for services they could provide and was instructed to come to the emergency department by the home health group. Patient presented here to our facility. He has a previously mentioned medical history. On ER work-up patient was found to have significant elevation of his BNP. Patient was given Lasix 20 mg IV and admitted. Patient himself is unable to provide any history at all regarding his recent stay at [facility], how he arrived at this facility, who told him to come to this facility. The above history is obtained from his daughter Abida. Hospital Course Hospital Course: Patient was admitted and diuresed with IV lasix before transitioning back to oral lasix. Patient was placed on a low sodium diet with 1200 mL fluid restriction as well. HE will need to continue these dietary restrictions. PT evaluated patietn and he was felt appropriate for SNF Patient is a DNR and his POA is his daughter Abida On 06/25 patient was discharged to [facility] after negative COVID-19 testing to rehabilitate. Mental Status: Average Rehab Pot: Fair Prognosis: Good Objective Vital signs: Temp Pulse Resp BP Pulse Ox 98.1 F 73 18 114/77 94 L 06/25/20 08:00 06/25/20 08:00 06/25/20 08:00 06/25/20 08:00 06/25/20 08:00 Results Labs on day of discharge: Labs from last 24 hours 06/25/20 06/25/20 06:30 06:30 WBC 3.6 L RBC 3.63 L Hgb 11.8 L Hct 36.8 L MCV 101.3 H MCH 32.4 H MCHC 32.0 RDW 14.8 Plt Count 152 MPV 8.2 Neut % (Auto) 79.2 Lymph % (Auto) 11.2 [place] % (Auto) 7.2 Eos % (Auto) 2.1 Baso % (Auto) 0.4 Neut # (Auto) 2.9 Lymph # (Auto) 0.4 L [place] # (Auto) 0.3 Eos # (Auto) 0.1 Baso # (Auto) 0.0 Sodium 142 Potassium 4.2 Chloride 108 H Carbon Dioxide 27 Anion Gap 11.2 BUN 52 H Creatinine 2.30 H Estimated Creat Clear 31 Estimated GFR 27 L Est GFR ( Amer) 33 L Glucose 109 H Calcium 8.7 DS: Diagnosis - Discharge Diagnosis (1) Acute on chronic diastolic congestive heart failure, NYHA class 4 Status: Acute (2) Chronic systolic heart failure Status: Chronic (3) Kidney disease, chronic, stage IV (GFR 15-29 ml/min) Status: Acute (4) Weight gain with edema Status: Acute (5) PAF (paroxysmal atrial fibrillation) Status: Chronic (6) Automatic implantable cardioverter-defibrillator in situ Status: Chronic (7) Essential hypertension Status: Chronic (8) Cardiomyopathy Status: Chronic (9) Fall at home Status: Acute (10) DNR (do not resuscitate) Status: Acute (11) Debility Status: Acute Discharge Plan - Patient Discharge Instructions ACTIVITY: Continue current activity DIET: continue same diet Patient Instructions: [id number], DI for Heart Failure, DI for Fatigue, DI for Failure to Thrive - Follow up Plan Disposition: Xfer [facility] Home Medications: Home Medications Medication Instructions Recorded Confirmed Type furosemide 40 mg tablet 40 mg PO DAILY PRN #90 tab 07/10/19 06/23/20 Rx Isosorbide Mononitrate [Imdur 30mg
--- NOTE | 2020-06-25 17:08 | PC.NURSE ---
Pt was neg for covid, he was sent to [facility] for skilled nsg. Called report to Debbie at 1620.
== END 2020-06-25 17:00 ==
LOC: ER 22:09 → 2ND 23:21
PROVIDERS: Admitting Provider Family Medicine; Emergency Provider Student in an Organized Health Care Education/Training Program; PCP Family Medicine; Visit Provider Family Medicine
DX: I13.0 Hypertensive heart and chronic kidney disease with heart failure and stage 1 through stage 4 chronic kidney disease, or unspecified chronic kidney disease (principal); I50.33 Acute on chronic diastolic (congestive) heart failure; N18.4 Chronic kidney disease, stage 4 (severe); I48.0 Paroxysmal atrial fibrillation; Z66 Do not resuscitate; I42.0 Dilated cardiomyopathy; Z95.0 Presence of cardiac pacemaker; Z79.899 Other long term (current) drug therapy
CPT/HCPCS: 36415; 71045; 80048; 80053; 83605; 83880; 85025; 86328; 93005; 96374; 97110; 97162; 99285; G0378; U0003

== ENCOUNTER 2020-07-05 10:37 | Emergency (ER) | payer MEDICARE, SELFPAY ==
[2020-07-05] VITALS (11 sets, daily range): BP systolic 0–109; BP diastolic 0–80; PULSE 0–180; RESP 0–20; TEMP -17.7–35.1; O2SAT 0–100; BMI 28.7
--- NOTE | 2020-07-05 10:41 | ECG_ITS ---
APPROVED REPORT Exam: Resting ECG HR:63 bpm ECG Measurements Heart Rate 63 AXES NC 246 P 62 QRSd 138 QRS -54 QT 504 T 144 QTc 515 <Conclusion> Sinus rhythm with 1st degree AV block Left axis deviation Left bundle branch block Unusual looking ST Elevation Lead V 2-Question significance Abnormal ECG Electronically signed by : Leo Thornton, 07/05/2020 17:35:57
--- NOTE | 2020-07-05 10:41 | XR_ITS ---
PROCEDURE: XR CHEST PORTABLE CLINICAL HISTORY: cough COMPARISON: [facility] CXR1 CHEST-PORTABLE from 06/04/2016 CR XR CHEST PORTABLE from 06/22/2020 FINDINGS: There is gross generalized cardiomegaly with biventricular enlargement. Left-sided cardiac pacemaker is again noted with dual chamber electrodes both in good position. There is no pulmonary congestion. Coarse patchy opacities are seen in both perihilar and infrahilar locations more prominent right side than left consistent with persistent pneumonic infiltrates joint possibly slight improvement on the left side. The upper lobes remain relatively clear bilaterally. IMPRESSION: Stable gross generalized cardiomegaly without evidence of failure, persistent bilateral perihilar and lower lobe ill-defined opacities probably due to pneumonic infiltrates but showing slight interval improvement the left base Dictated by: Dr. Galileo Wang MD 07/05/2020 11:30 Dr. Galileo Wang MD in [place] 07/05/2020 11:30
--- NOTE | 2020-07-05 10:42 | CT_ITS ---
PROCEDURE: CT HEAD/BRAIN WO CON CLINICAL INDICATION: AMS COMPARISON: No exams were available for comparison TECHNIQUE: Axial images obtained. All CT scans at the facility use one or more dose reduction, viz: automated exposure control, ma/kV adjustment per patient size (including targeted exams where dose is matched to indication, i.e. head), or iterative reconstruction technique. FINDINGS: No midline shift, mass effect, intracranial hemorrhage, hydrocephalus, or extra-axial fluid collection is evident. There is mild diffuse ventriculomegaly. There prominent periventricular hypodensities consistent with chronic ischemic white matter changes. 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 The calvarium has an unremarkable appearance. There is focal calcification of the falx cerebri anteriorly. No mastoid effusion. No sinus air-fluid level. IMPRESSION: No acute intracranial finding Dictated by: Dr. Galileo Wang MD 07/05/2020 11:27 Dr. Galileo Wang MD in [place] 07/05/2020 11:27
--- NOTE | 2020-07-05 10:45 | PC.NURSE ---
pt rectal temperature 95.1 juan hugger placed on pt will warm blankets will continue to monitor
--- NOTE | 2020-07-05 10:50 | PC.NURSE ---
RT at BS for rossi
--- NOTE | 2020-07-05 10:51 | PC.NURSE ---
RT at bedside
--- NOTE | 2020-07-05 10:55 | PC.NURSE ---
SaO2 100% on NRB at 15L Pt placed on NC@ 5L -SaO2 93% will continue to monitor
[2020-07-05 10:58] LABS: Appearance,Urine CLEAR (Clear); Bilirubin,Urine Negative (Negative); Blood, Urine Negative (Negative); Color,Urine YELLOW (Yellow); Glucose,Urine (UA) Negative (Negative); Ketones,Urine Negative (Negative); Leukocyte Esterase,Urine Negative (Negative); Microscopic, Urine URINE MICROSCOPIC (MICROSCOPIC); Nitrate,Urine Negative (Negative); PH,Urine 5.5 (5.0-8.5); Protein,Urine Negative (Negative); Specific Gravity, Urine 1.015 (1.005-1.030); Urobilinogen,Urine 0.2 EU/dl (0.2)
--- NOTE | 2020-07-05 10:58 | PC.NURSE ---
pt to CT
--- NOTE | 2020-07-05 10:58 | PC.NURSE ---
Pt to rad.
[2020-07-05 11:00] LABS: ABG Base Excess -7.9 mmol/L (-2.4-2.3); ABG HCO3 17.1 mmhg (22.0-26.0); ABG Oxygen Saturation 99 % (90-100); ABG PCO2 28.9 mmhg (35.0-45.0); ABG PH 7.39 mmol/L (7.35-7.45); ABG PO2 217.8 mmhg (80-100); Allen's Test Acceptable; Oxygen NR %; Source Left Brachial
[2020-07-05 11:01] LABS: Basophils % 0.5 % (0.1-2.0); Eosinophils # 0.1 K/mm3 (0.0-0.4); Eosinophils % 1.9 % (0.1-12.0); Hemoglobin 12.7 g/dL (14.1-18.0); Lymphocytes # 1.1 K/mm3 (0.7-4.5); Lymphocytes % 30.2 % (10-50); Mean Corpuscular HGB Conc 31.7 g/dL (31.8-35.4); Mean Corpuscular Hemoglobin 32.9 pg (27.0-31.2); Mean Corpuscular Volume 103.8 fl (80-94); Mean Platelet Volume 9.8 fl (7.4-10.4); Monocytes # 0.2 K/mm3 (0.1-1.0); Monocytes % 6.8 % (1.7-9.3); Neutrophils # 2.2 K/mm3 (1.8-7.8); Neutrophils % 60.6 % (37.0-80.0); Platelet Count 130 K/mm3 (142-424); Red Blood Count 3.86 M/mm3 (4.60-6.20); White Blood Count 3.6 K/mm3 (4.8-10.8)
[2020-07-05 11:03] LABS: Chloride 108 mmol/L (98-107)
[2020-07-05 11:04] LABS: Potassium 4.9 mmoL/L (3.5-5.1); Sodium 145 mmol/L (136-145)
[2020-07-05 11:06] LABS: Blood Urea Nitrogen 53 mg/dl (9-20); Creatinine Clearance Estimated 31 mL/min (50-200); Estimated Glomerular Filt Rate 27 ml/min (>60); GFR (African American) 33 ML/MIN (>60)
[2020-07-05 11:07] LABS: Alanine Aminotransferase 14 U/L (12-78); Albumin Level 3.1 g/dl (3.5-5.0); Albumin/Globulin Ratio 0.8 (1.1-1.8); Alkaline Phosphatase 152 U/L (38-126); Anion Gap 16.9 mEq/L (5-15); Aspartate Amino Transferase 26 U/L (17-59); Bilirubin,Total 1.2 mg/dl (0.2-1.3); Calcium 9.2 mg/dl (8.4-10.2); Carbon Dioxide 25 mmol/L (22.0-30.0); Globulin 3.9 g/dL (1.3-3.2); Glucose 157 mg/dl (74-100)
[2020-07-05 11:10] LABS: Activated Partial Thrombo Time 26.2 seconds (23.6-34.0); Prothrombin Time 13.2 seconds (9.4-11.8)
--- NOTE | 2020-07-05 11:21 | PC.NURSE ---
pt return from ct
[2020-07-05 11:22] LABS: Bacteria,Urine Trace /lpf; Troponin I < 0.01 ng/ml (0.00-0.034); WBC,Urine Occasional #/hpf (0-3)
--- NOTE | 2020-07-05 11:22 | HMH.EDWEAK ---
ED Disposition Clinical Impression: Syncope and collapse Bilateral pneumonia Qualifiers: Pneumonia type: due to unspecified organism Lung location: lower lobe of lung Qualified Code(s): J18.9 - Pneumonia, unspecified organism Hypothermia Qualifiers: Encounter type: initial encounter Qualified Code(s): T68.XXXA - Hypothermia, initial encounter Disposition: Xfer SNF Condition on Discharge: Good Instructions: Pneumonia-Adult Prescriptions: Doxycycline Hyclate [Doxycycline 100mg Capsule] 100 mg PO Q12 10 Days #20 cap Transmission Status: Pending to [facility] Referrals: Taiwo Singer MD [Primary Care Provider] - - Critical Care Critical Care Time: No Attestation: On 07/05/20, the high probability of a clinically significant, sudden or life threatening deterioration of the following system(s) required my full and direct attention, intervention and personal management. The time I documented below is in addition to time spent performing reported procedures but includes the following listed in this critical care notation. Medical Decision Making - Medical Records Medical records reviewed: Yes: I reviewed the patient's medical records. - Marcio Inquiry Pt receiving controlled substance: No Vital Signs: 07/05/20 10:37 07/05/20 10:58 07/05/20 12:03 Temperature 95.1 F L Temperature Source Rectal Pulse Rate [Apical] 60 65 69 Respiratory Rate 20 Blood Pressure [Right Arm] 65/38 L 95/76 L 99/69 L Blood Pressure Mean [Right Arm] 47 82 79 Blood Pressure Source [Right Arm] Automatic Cuff Automatic Cuff Automatic Cuff Blood Pressure Position [Right Arm] Sitting Sitting Sitting 02 Sat by Pulse Oximetry 100 93 L 100 Oxygen Delivery Method Non-Rebreather Nasal Cannula Room Air Oxygen Flow Rate (LPM) 15 5 - Lab Data Lab Results 07/05/20 10:38: WBC 3.6 L, RBC 3.86 L, Hgb 12.7 L, Hct 40.0 L, MCV 103.8 H, MCH 32.9 H, MCHC 31.7 L, RDW 15.0, Plt Count 130 L, MPV 9.8, Neut % (Auto) 60.6, Lymph % (Auto) 30.2, [place] % (Auto) 6.8, Eos % (Auto) 1.9, Baso % (Auto) 0.5, Neut # (Auto) 2.2, Lymph # (Auto) 1.1, [place] # (Auto) 0.2, Eos # (Auto) 0.1, Baso # (Auto) 0.0 07/05/20 10:38: Urine Color Yellow, Urine Appearance Clear, Urine pH 5.5, Ur Specific [place] 1.015, Urine Protein Negative, Urine Glucose (UA) Negative, Urine Ketones Negative, Urine Blood Negative, Urine Nitrate Negative, Urine Bilirubin Negative, Urine Urobilinogen 0.2, Ur Leukocyte Esterase Negative, Urine RBC None, Urine WBC Occasional, Ur Squamous Epith Cells 3-5, Urine Bacteria Trace 07/05/20 10:38: PT 13.2 H, INR 1.30 H, APTT 26.2 07/05/20 10:38: Sodium 145, Potassium 4.9, Chloride 108 H, Carbon Dioxide 25, Anion Gap 16.9 H, BUN 53 H, Creatinine 2.30 H, Estimated Creat Clear 31, Estimated GFR 27 L, Est GFR ( Amer) 33 L, Glucose 157 H, Calcium 9.2, Total Bilirubin 1.2, AST 26, ALT 14, Alkaline Phosphatase 152 H, Troponin I < 0.01, NT-Pro-B Natriuret Pep 62033 H, Total Protein 7.0, Albumin 3.1 L, Globulin 3.9 H, Albumin/Globulin Ratio 0.8 L 07/05/20 10:57: Specimen Source Left brachial, O2 % Nr, ABG pH 7.39, ABG pCO2 28.9 L, ABG pO2 217.8 H, ABG HCO3 17.1 L, ABG Total CO2 18.0 L, ABG O2 Saturation 99, ABG Base Excess -7.9 L, Clement Test Acceptable Result diagrams: 07/05/20 10:38 07/05/20 10:38 Orders (Tests/Meds): ED MEDICATIONS Generic Name Dose Route Start Last Admin Trade Name Freq PRN Reason Stop Dose Admin Sodium Chloride 1,000 mls @ 999 mls/hr 07/05/20 11:30 07/05/20 11:27 Sod Chlor 0.9% 1000ml Bag IV 07/05/20 12:30 999 mls/hr .Q1H1M THANIA Administration Ceftriaxone Sodium 1 gm/ 50 mls @ 100 mls/hr 07/05/20 12:00 Sodium Chloride IV 10/02/20 11:59 Q24H THANIA Protocol Doxycycline Hyclate 100 mg/ 250 mls @ 166.667 mls/hr 07/05/20 12:00 Sodium Chloride IV 07/19/20 11:59 Q12H [facility] Protocol ORDERS Category Date Time Status Lactic Acid Stat Lab 07/05/20 11:55 Ordered Troponin I Q3H Lab 0
[2020-07-05 11:43] LABS: NT Pro Brain Natriuretic Pep. 63100 pg/mL (0-450)
--- NOTE | 2020-07-05 12:02 | PC.NURSE ---
Addendum entered by Adriana Artis RN 07/05/20 14:59: Error on Time correct time 1302 Original Note: RIC Schaefer at BS, defib/pacemaker interpreted, pt daughter at BS RIC Schaefer discussed with pt daughter options of turning defibrillator off so that it won't continue to shock pt. Pt daughter states ok to go ahead and turn off defibrillator, daughter states I don't want him to be in pain .
--- NOTE | 2020-07-05 12:02 | PC.NURSE ---
Calling Dr Singer at this time.
--- NOTE | 2020-07-05 12:02 | PC.NURSE ---
MICHELINE KAPLAN speaking with Dr farnsworth at this time.
--- NOTE | 2020-07-05 12:38 | PC.NURSE ---
Pt daughter entered pts room, staff could hear daughter calling pts name several times. Staff entered room to check on pt. Pt noted to have agonal respirations, no pulse noted. Staff alerted ER MD, called ER MD to BS. Placed pt on NRB at 15L Asked pt daughter about pt code status, Pt assisted chart states DNR and a living will stating DNR was also sent with pt from the assisted. Pt daughter stated she did not want CPR or a breathing tube inserted and did not want pt resuscitated. 1239-Staff observed pt defibrillator shock him at this time 1240-ER MD at BS, assessed pt, pt noted to have a pulse at this time, agonal respirations present
--- NOTE | 2020-07-05 12:54 | PC.NURSE ---
DR COLE SPEAKING WITH [facility]
--- NOTE | 2020-07-05 12:58 | PC.NURSE ---
Darrick ny at bedside
--- NOTE | 2020-07-05 13:17 | PC.NURSE ---
pt noted to be in VTACH at this time ER aware pt daughter at BS will continue to monitor
--- NOTE | 2020-07-05 13:23 | PC.NURSE ---
pt noted to be absent of respirations and pulse, notified ER , ER came to BS pt daughter at BS
--- NOTE | 2020-07-05 13:29 | HMH.CNCARD ---
History of Present Illness Consult date: 07/05/20 Requesting physician: Giovani Greenwood Chief complaint: Recurrent V. tach History of present illness: 85-year-old black male with known severely dilated cardiomyopathy and by V ICD [place] department [place] [facility] [place] in the ER and diagnosed with pneumonia on chest x-ray. Patient has a DNR status. During evaluation in the ER patient was noted to have repeated ICD shocks due to recurrent ventricular tachycardia. Over the last several months our office has contacted the patient regarding recurrent V. tach for which he has been shocked to discuss additional therapy to which she repeatedly reports responded that he had lived a long life and did not want any further therapy and he hoped that he would just at home. At the request of the family we have been consulted to turn off the defibrillator portion of his device. [facility] History Medical History: Reports:: Atrial Fibrillation, Cardiomyopathy, Hypertension, Internal Pacemaker, Renal Disease Denies:: Cancer, Diabetes Mellitus Type 1, Diabetes Mellitus Type 2, MRSA *Have you ever received a pneumonia vaccine?: No *Have you received a flu vaccine this season?: No Other Surgeries: Yes: No Previous Surgery, Colonoscopy, Pacemaker Amputation: No Fractures: No - *Social History Smoking Status: Never smoker Alcohol Intake: never Alcohol Intake Frequency:: other Substance Use Type: denies use *Occupational Status:: retired *Travel in the last 8 weeks: None Family Hx:: No significant family history Meds Home Medications Medication Instructions Recorded Confirmed Type furosemide 40 mg tablet 40 mg PO DAILY PRN #90 tab 07/10/19 06/23/20 Rx Isosorbide Mononitrate [Imdur 30mg 30 mg PO DAILY 06/22/20 06/23/20 History ER tablet] carvediloL [Carvedilol 6.25mg Tab] 6.25 mg PO BID 06/22/20 06/23/20 History Atorvastatin Calcium [Lipitor 40mg 40 mg PO HS 06/23/20 06/23/20 History Tab] Folic Acid [Folic Acid 1mg tablet] 1 mg PO DAILY 06/23/20 06/23/20 History Pantoprazole Sodium [Protonix 40mg 40 mg PO DAILY 06/23/20 06/23/20 History tablet] Doxycycline Hyclate [Doxycycline 100 mg PO Q12 10 Days #20 cap 07/05/20 Rx 100mg Capsule] Allergies Allergy/AdvReac Type Severity Reaction Status Date / Time No Known Allergies Allergy Verified 06/23/20 00:28 Exam Vital signs and Labs for Last 24 Hours: Temp Pulse Resp BP Pulse Ox 95.1 F L 180 H 16 99/80 L 61 L 07/05/20 12:21 07/05/20 13:17 07/05/20 12:49 07/05/20 13:17 07/05/20 13:11 Laboratory Results - last 24 hr 07/05/20 10:38: WBC 3.6 L, RBC 3.86 L, Hgb 12.7 L, Hct 40.0 L, MCV 103.8 H, MCH 32.9 H, MCHC 31.7 L, RDW 15.0, Plt Count 130 L, MPV 9.8, Neut % (Auto) 60.6, Lymph % (Auto) 30.2, [place] % (Auto) 6.8, Eos % (Auto) 1.9, Baso % (Auto) 0.5, Neut # (Auto) 2.2, Lymph # (Auto) 1.1, [place] # (Auto) 0.2, Eos # (Auto) 0.1, Baso # (Auto) 0.0 07/05/20 10:38: Urine Color Yellow, Urine Appearance Clear, Urine pH 5.5, Ur Specific [place] 1.015, Urine Protein Negative, Urine Glucose (UA) Negative, Urine Ketones Negative, Urine Blood Negative, Urine Nitrate Negative, Urine Bilirubin Negative, Urine Urobilinogen 0.2, Ur Leukocyte Esterase Negative, Urine RBC None, Urine WBC Occasional, Ur Squamous Epith Cells 3-5, Urine Bacteria Trace 07/05/20 10:38: PT 13.2 H, INR 1.30 H, APTT 26.2 07/05/20 10:38: Sodium 145, Potassium 4.9, Chloride 108 H, Carbon Dioxide 25, Anion Gap 16.9 H, BUN 53 H, Creatinine 2.30 H, Estimated Creat Clear 31, Estimated GFR 27 L, Est GFR ( Amer) 33 L, Glucose 157 H, Calcium 9.2, Total Bilirubin 1.2, AST 26, ALT 14, Alkaline Phosphatase 152 H, Troponin I < 0.01, NT-Pro-B Natriuret Pep 87290 H, Total Protein 7.0, Albumin 3.1 L, Globulin 3.9 H, Albumin/Globulin Ratio 0.8 L 07/05/20 10:57: Specimen Source Left brachial, O2 % Nr, ABG pH 7.39, ABG pCO2 28.9 L, ABG pO2 217.8 H, ABG HC
--- NOTE | 2020-07-05 13:36 | PC.NURSE ---
contacted JOANN at this time spoke with Libra Villar states pt is ruled out for donation, okayed release to the home case ID number [id number]
--- NOTE | 2020-07-05 13:46 | PC.NURSE ---
contacted loop machine operator at this time, spoke with Henrik Olvera
--- NOTE | 2020-07-05 13:54 | PC.NURSE ---
contacted [facility] at this ( home that was requested by pt family
== END 2020-07-05 15:16 | disposition expired ==
PROVIDERS: Emergency Provider Emergency Medicine; PCP Family Medicine
DX: R55 Syncope and collapse (principal); J18.9 Pneumonia, unspecified organism; T68.XXXA Hypothermia, initial encounter; I48.91 Unspecified atrial fibrillation; I10 Essential (primary) hypertension; Z95.0 Presence of cardiac pacemaker; Z79.899 Other long term (current) drug therapy; I50.9 Heart failure, unspecified
CPT/HCPCS: 70450; 71045; 80053; 81001; 82803; 83880; 84484; 85025; 85610; 85730; 93005; 96365; 96367; 96375; 99285